=== PATIENT | female | born 1980 | race Caucasian/White ===

== ENCOUNTER → 2016-07-27 | Outpatient (CLI) | payer OTHER ==
[~2016-07-27] MED LIST: CALCIUM CARBON600 MG PO; FOLIC ACID 40400 MCG PO; MOTRIN800 MG PO; PRENATAL 1+1)(P1 TAB PO
== END | disposition disaster alternative care site (69) ==
LOC: LBOND 16:54
DX: L02.01 Cutaneous abscess of face (principal)